=== PATIENT | male | born 1990 | race Caucasian/White ===

== ENCOUNTER 2018-11-09 06:52 | Day surgery (SDC) | payer BC ==
[~2018-11-09 06:52] MED LIST: Lactated Ringers 1,000 ML IV SCH
[2018-11-09] MEDS ORDERED: Lidocaine 1% PF 2 ML SDV INJECT ONE (06:53)
[2018-11-09] MEDS ORDERED: Propofol 200 MG/20 ML SDV IV ONE (06:53)
--- NOTE | 2018-11-09 08:37 | PCM.OPNOTE ---
- General Post-Op/Procedure Note Date of Surgery/Procedure: 11/09/18 Operative Procedure(s): c scope with bx Findings: rectal polyp Pre Op Diagnosis: bleeding per rectum Post-Op Diagnosis: rectal polyp Anesthesia Technique: MAC Primary Surgeon: Preston Reddy Anesthesia Provider: Deyvi Hinson Pathology: rectal polyp Complications: none Condition: Good Free Text/Narrative:: see dictation area was tattooed as well
--- NOTE | 2018-11-09 09:32 | OR ---
DATE OF OPERATION: 11/09/2018 SURGEON: Preston Reddy MD PROCEDURE PERFORMED: Colonoscopy with hot loop snare biopsy. PREOPERATIVE DIAGNOSIS: Bleeding per rectum. POSTOPERATIVE DIAGNOSIS: Rectal polyp. INDICATIONS FOR PROCEDURE: This is a 28-year-old white male who was referred with a history of some bleeding per rectum. He was offered and accepted colonoscopy. DESCRIPTION OF OPERATION: After an excellent IV sedation was administered, digital rectal exam was performed. No marked abnormality was noted. Flexible colonoscope was inserted and advanced to the cecum. Prep was excellent. The following findings were noted. Ascending colon, unremarkable. Transverse colon, unremarkable. Descending colon, unremarkable. Sigmoid, unremarkable. Rectum, at approximately 15 cm, pedunculated polyp, approximately 1.5 cm in size was encountered. This was biopsied with 2 passes of the hot loop snare. We also tattooed the area to aid in further workup. The remainder of the rectal exam was unremarkable. The patient tolerated the procedure well and was taken to recovery. Results by letter. /[id number] NICOLE/DAVID
== END 2018-11-09 09:25 | disposition home or self-care (01) ==
LOC: FB.SDS 06:52
PROVIDERS: ATTEND Surgery
DX: D12.8 Benign neoplasm of rectum (principal)
CPT/HCPCS: 88305; J2001; J2704; J7120